=== PATIENT | male | born 1985 | race Hispanic/Latino ===

== ENCOUNTER → 2019-05-14 | Day surgery (SDC) | payer BC ==
[2019-05-11 15:51] LABS: BASOPHILS # (AUTO) 0.1 (0.0-0.1); BASOPHILS % 0.7 % (0.0-1.0); EOSINOPHILS # (AUTO) 0.2 (0.0-0.4); EOSINOPHILS % 2.8 % (0.0-6.0); HEMATOCRIT 47.7 % (38.2-49.6); LYMPHOCYTES # (AUTO) 1.6 (1.0-3.2); LYMPHOCYTES % 20.5 % (18.0-39.1); MEAN CORPUSCULAR HEMOGLOBIN 31.5 pg (28-32); MEAN CORPUSCULAR HGB CONC 35.6 g/dL (31-35); MEAN CORPUSCULAR VOLUME 88.3 fL (81-99); MONOCYTES # (AUTO) 0.8 (0.2-0.8); NEUTROPHILS % 65.7 % (38.7-80.0); PLATELET COUNT 235 x10e3/uL (140-360); RED CELL DISTRIBUTION WIDTH 11.9 % (11.7-14.4)
[2019-05-11 16:21] LABS: ANION GAP 13.9 mmol/L (8-16); BLOOD UREA NITROGEN 14 mg/dL (7-26); BUN/CREATININE RATIO 15 (6-25); CALCIUM 9.6 mg/dL (8.4-10.2); CARBON DIOXIDE 25 mmol/L (22-29); CHLORIDE 102 mmol/L (98-107); CREATININE, SERUM 0.94 mg/dL (0.72-1.25); EST GLOMERULAR FILTRATION RATE > 60 ML/MIN (60-); GLUCOSE 83 mg/dL (74-118); POTASSIUM 3.9 mmol/L (3.5-5.1); SODIUM 137 mmol/L (136-145)
[~2019-05-14] MED LIST: BUPIVACAINE 0.25%/EPI 30ML SDV INJ ONE; DEXAMETHASONE SOD PHOS INJ 4 MG/ML VIAL ONE; FENTANYL CITRATE/PF 100MCG/2 ML INJ ONE; KETOROLAC TROMETHAMINE 30 MG/ML VIAL ONE; LIDOCAINE HCL 2% LOCAL INJ 5 ML SDV VIAL INJ ONE; MIDAZOLAM HCL 2 MG/2 ML VIAL ONE; ONDANSETRON HCL INJ 2MG/ML 2ML 2 MG/ML VIAL ONE; PROPOFOL IV EMULSION 10 MG/ML 20 ML VIAL ONE; SEVOFLURANE INHAL SOLN 250 ML PEN BTL ONE
--- NOTE | 2019-05-14 10:32 | Operative Report ---
DATE OF PROCEDURE: 05/14/2019 SURGEON: Dominik Mohan MD PREOPERATIVE DIAGNOSIS: Epidermal inclusion cyst of the left elbow. POSTOPERATIVE DIAGNOSIS: Epidermal inclusion cyst of the left elbow. PROCEDURE PERFORMED: Excision of mass of the left elbow. ANESTHESIA: General. ESTIMATED BLOOD LOSS: Minimal. DRAINS: None. COMPLICATIONS: None. INDICATION AND FINDINGS: The patient is a 33-year-old male, who has a long-standing history several years of a mass of the left elbow. It was beginning to interfere with the activities of daily life as it was located right over the elbow in the flexor crease posteriorly. It was about 4 cm and nontender. Had a negative Tinel sign. Intraoperative findings were a 4 cm mass, subcutaneous, mobile, located superficially in the posterior aspect of the left elbow. The preoperative diagnosis was epidermal inclusion cyst. 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 DESCRIPTION OF PROCEDURE: With the patient lying on the operating table in supine position after administration of general anesthesia, he was prepped and draped with DuraPrep and left table was flexed over his chest, exposing the posterior aspect of the left elbow. An incision was made directly over the skin and immediately came into view this round soft mass, which was not an inclusion cyst. The mass was then partially exteriorized as we placed pressure on it from both sides, opened down, as we applied pressure superiorly and inferior to the mass until the mass was basically exteriorized the liver into the skin. The mass was completely and separately from the deep planes of the left elbow and then the adhesions were sharply transected. We got to a point where the mass appeared to be attached to the structure from which it appeared to originate and then we tied off that further and delivered the mass and was sent to Pathology for examination. Bleeding points were cauterized. Then, the wound was closed in two layers using 3-0 Vicryl for the superficial fascia and 3-0 silk for the skin vertical mattress. Sterile dressing was applied. The patient tolerated the procedure well and taken to recovery room in stable condition. MD CELENA Pitts/MODL /[id number]
[2019-05-14 10:50] VITALS: BP 131/87
== END | disposition home or self-care (01) ==
LOC: OR 06:21
PROVIDERS: ATTEND Surgery
DX: D21.12 Benign neoplasm of connective and other soft tissue of left upper limb, including shoulder (principal); K21.9 Gastro-esophageal reflux disease without esophagitis; Z01.812 Encounter for preprocedural laboratory examination
CPT/HCPCS: 24071; 36415; 80048; 85025; 88305; J1100; J1885; J2001; J2250; J2405; J2704; J3010; 88304